=== PATIENT | female | born 1945 | race Caucasian/White ===

== ENCOUNTER → 2017-04-29 | Outpatient (CLI) | payer MEDICARE ==
--- NOTE | 2017-04-29 13:12 | RADIOLOGY REPORT PS360 ---
CHEST(2 VIEWS-NOT PORTABLE) HISTORY: Shortness of air, congestion, asthma GLOSSITIS ORDERING PHYSICIAN: HENRY GARSIA APRN PATIENT AGE: 72 years COMPARISON: 01/31/2016 FINDINGS: The cardiomediastinal silhouette and pulmonary vascularity are within normal limits. The lungs are clear without infiltrates, suspicious nodules, or pleural effusions. No acute bony abnormalities. IMPRESSION: Negative chest, no acute finding
== END ==
LOC: RAD 11:34
DX: K14.0 Glossitis (principal)